=== PATIENT | female | born 1970 | race Caucasian/White ===

== ENCOUNTER → 2017-01-04 | Outpatient (CLI) | payer OTHER ==
[~2017-01-04] MED LIST: FENO145T26 PO; FNTTP50 TD; LOSA50TA6 PO; OXYC-164 PO; SIMV20TA2 PO
== END | disposition home or self-care (01) ==
LOC: C.RDSM 12:30
PROVIDERS: ATTEND Orthopaedic Surgery Sports Medicine
DX: M25.532 Pain in left wrist (principal)

== ENCOUNTER → 2017-01-10 | Outpatient (CLI) | payer OTHER ==
[2017-01-10 12:10] LABS: MEAN CELL VOLUME 90.7 fL (80-100); MEAN CORPUSCULAR HGB CONC 33.1 g/dl (32-36); MEAN PLATELET VOLUME 10.4 fL (7.4-10.4); PLATELET COUNT 242 K/uL (130-400); RED BLOOD COUNT 4.96 M/uL (4.2-5.4); WHITE BLOOD COUNT 9.55 K/uL (4.8-10.8)
== END | disposition home or self-care (01) ==
LOC: C.CPL 11:14
PROVIDERS: ATTEND Physician Assistant
DX: G56.02 Carpal tunnel syndrome, left upper limb (principal)

== ENCOUNTER → 2017-01-18 | Day surgery (SDC) | payer OTHER ==
[2017-01-09 12:06] VITALS: Ht 170.2 cm; Wt 93.6 kg
[~2017-01-18] VITALS: Ht 170.2 cm; Wt 93.6 kg
[~2017-01-18] MED LIST changes: +ATROPINE SULFATE 0.1 MG/ML 5ML SYR IV PRN; +BUPIVACAINE/EPINEPHRINE 0.5% MPF 1:200,000 10 ML VIAL ONE; +CEFAZOLIN 2000 MG/60 ML D5W IV SCH; +FENTANYL CITRATE INJ 50 MCG/1 ML 2 ML VIAL IV PRN; +FENTANYL CITRATE INJ 50 MCG/1 ML 2 ML VIAL ONE; +LACTATED RINGER'S 1000ML 1,000 ML IV SCH; +LIDOCAINE HCL 1% 20 ML VIAL ONE; +LIDOCAINE HCL 2% 2 ML VIAL (20MG/ML) ONE; +MIDAZOLAM HCL 1 MG/ML 2ML VIAL ONE; +MoRPHine SULFATE 4 MG/ML 1 ML CARP\\VIAL IV PRN; +ONDANSETRON INJ 2 MG/ML 2 ML VIAL IV PRN; +OXYCODONE/ACETAMINOPHEN 5-325 TAB PO PRN; +PROPOFOL IV EMULSION 10 MG/ML 20 ML VIAL IV ONE
--- NOTE | 2017-01-18 08:59 | History & Physical Bridge - [place] ---
H&P Re-Evaluation Bridge Note: I have examined the patient, reviewed the History & Physical and in the interval since the performance of the History & Physical I have noted the following changes of clinical significance: No changes noted
--- NOTE | 2017-01-18 10:21 | Discharge Instructions-SurgCtr ---
Discharge Instructions Date of Service Jan 18, 2017. Visit Reason for Visit: Left Carpal Tunnel Syndrome Discharge Discharge Diagnosis / Problem: Status post Left Endoscopic Carpal Tunnel Release Discharge Goals Goal(s): Decrease discomfort, Improve function, Increase independence Activity Recommendations Activity Limitations: per Instructions/Follow-up section May Resume Sexual Activity: when tolerated Shower/Bathe: may shower/bathe in 3 days Driving or Machine Use: Not while on Narcotics Anesthesia . Post Anesthesia Instructions: If you have had General Anesthesia or IV Sedation: * Do not drive today. * Resume driving when surgeon permits. * Do not make important decisions or sign legal documents today. * Call surgeon for: 1. Temperature elevations greater than 101 degrees F. 2. Uncontrollable pain. 3. Excessive bleeding. 4. Persistent nausea and vomiting. 5. Medication intolerance (nausea, vomiting or rash). * For nausea and vomiting use only clear liquids such as: tea, soda, bouillon until nausea subsides, then gradually increase diet as tolerated. * If you have any concerns or questions, call your surgeon's office. If physician is unavailable and it is an emergency, call 911 or go to the nearest emergency room. . Instructions / Follow-Up Instructions / Follow-Up Dr. Lu in 10-15 days. PT in 2-3 days. Diet Recommendations Home Diet: no limitations Procedures Procedures Performed: Left Endoscopic Carpal Tunnel Release Pending Studies Studies pending at discharge: no Medical Emergencies . Who to Call and When: Medical Emergencies: If at any time you feel your situation is an emergency, please call 911 immediately. . Non-Emergent Contact Non-Emergency issues call your: Surgeon Call Non-Emergent contact if: temperature is above 101.5, your pain is not controlled, wound has increased drainage, wound has increased redness . . "Provider Documentation" section prepared by Lyndon Lu. .
--- NOTE | 2017-01-18 10:22 | [facility] Operative Report ---
Operative Report Operative Date Jan 18, 2017. Pre-Operative Diagnosis Left Carpal Tunnel Syndrome Post-Operative Diagnosis Same Procedure(s) Performed Left Endoscopic Carpal Tunnel Release Surgeon Dr. Lu Seat Pack Inspector Surgeon(s) Dr. Monson Estimated Blood Loss 2 ml Findings Thickened Transverse Carpal Ligament. Fluids (cc crystalloids) 400 Specimens None Drains n/a Anesthesia Local + Sedation Complication(s) None Disposition Recovery Room / PACU (Stable) Implants n/a Indications The patient is a 47 year old female with long standing left carpal tunnel syndrome that has failed conservative treatment. I recommended endoscopic left carpal tunnel release. The patient understands the risks of surgery, which include but are not limited to: bleeding, infection, re-operation, damage to nerves and arteries, continued pain, and stiffness. The patient understands all of these instructions and explanations, all of their questions have been satisfactorily addressed. The patient has elected to proceed with surgery and the informed consent was signed. Description of Procedure The patient was taken to the Operating Room and placed in the supine position on the operating table. After adequate sedation was administered a multidisciplinary time-out was performed identifying my initials on the left upper extremity as the correct and operative limb. Prior to the incisions being made, 3 grams of intravenous Ancef were given. The left upper extremity was prepped and draped in the usual orthopaedic sterile fashion. A Median nerve block was performed in the standard manner, along with superficial injection of the planned incisions with 10 cc of a 50:50 mix of 1% Lidocaine plain and 0.5% Bupivacaine plain. The Pisiform was marked and the planned transverse incision was marked 0.5 cm proximal and 1.5 cm radial, approximately 1 cm in length. An Esmarch was used to exsanguinate the limb and the tourniquet was inflated to 250mmHg. The planned exit portal was made in- line with the Ring Finger crossing Caplans line. The Transverse incision was carried down through the skin and blunt dissect was carried down through the fascia, protecting any superficial vessels. A freer was used to expose the carpal tunnel to the point of the distal exit portal. The slotted cannula was introduced from proximal to distal and the exit portal was incised and the slotted cannula was delivered out the exit portal. The hand was placed on the extension bump. The arthroscope was placed from proximal to distal to view the Transverse Carpal Ligament (TCL). Multiple Q-tips were used for better exposure. The most distal aspect of the TCL was incised with forward cutting blade. Then the Triangular blade was used to incise the TCL in the mid-portion. The retrograde scalpel was used to connect the two incisions in the TCL. At this point the arthroscope was switched to view from the distal to proximal and the proximal portion of the TCL was incised. Care was taken not incise the skin. The forward cutting blade was used to incise the proximal portion. Then the retrograde blade connected the two incisions in the TCL. The triangular blade was used to incise any remaining fibers of the TCL. The entire release was visualized with the arthroscope. The wounds were copiously irrigated. The trocar was replaced prior to removing the cannula. Both portals were closed with 3-0 Nylon. The incisions were dressed with Xeroform gauze, sterile gauze, sterile Webril, and an ANALISA bandage. The sponge and needle counts were correct. The patient was taken to the recovery room in stable condition. Post-op Instructions: Pain medicine prescription was given pre-operatively to be taken as needed. The patient will elevate and ice. No heavy lifting with his left upper extremity. The patient will follow up with me in 10-15 days. I attest to the content of the Intraoperative Record and any orders documented therein. Any exceptions are noted below.
[2017-01-18 10:25] VITALS: TEMP 36.5
[2017-01-18 10:58] VITALS: BP 137/85; PULSE 78; O2SAT 96
--- NOTE | 2017-01-18 10:58 | Anesthesia Progress Nt - [facility] ---
Anesthesia Post Op Note Date & Time Jan 18, 2017 at 10:58 Vital Signs Vital Signs Past 12 Hours Date Time Temp Pulse Resp B/P (MAP) Pulse Ox O2 Delivery O2 Flow Rate FiO2 01/18/17 10:25 36.5 89 16 131/82 (98) 95 Room Air 01/18/17 08:29 36.8 81 18 131/100 (110) 95 Room Air Notes Mental Status: alert / awake / arousable, participated in evaluation Pt Amnestic to Procedure: Yes Nausea / Vomiting: adequately controlled Pain: adequately controlled Airway Patency, RR, SpO2: stable & adequate BP & HR: stable & adequate Hydration State: stable & adequate Anesthetic Complications: no major complications apparent
== END | disposition home or self-care (01) ==
LOC: X.SURG 07:59
PROVIDERS: ATTEND Orthopaedic Surgery Sports Medicine
DX: G56.02 Carpal tunnel syndrome, left upper limb (principal); I10 Essential (primary) hypertension; E78.5 Hyperlipidemia, unspecified; E11.9 Type 2 diabetes mellitus without complications; F17.210 Nicotine dependence, cigarettes, uncomplicated; K21.9 Gastro-esophageal reflux disease without esophagitis; E66.9 Obesity, unspecified; Z90.49 Acquired absence of other specified parts of digestive tract; Z90.710 Acquired absence of both cervix and uterus